=== PATIENT | male | born 1955 ===

== ENCOUNTER 2023-08-25 09:13 | Outpatient (CLI) | payer OTHER | END 2023-08-25 10:12 | disposition home or self-care (01) | LOC: MRI 09:13 | DX: C61 Malignant neoplasm of prostate (principal) | CPT/HCPCS: 72197; Q9965 ==

== ENCOUNTER 2024-11-03 20:26 | Emergency (ER) | payer OTHER ==
[~2024-11-03] VITALS: Ht 175.3 cm; Wt 79.4 kg
[2024-11-03] MEDS ORDERED: EZALLOR SPRINKLE5 MG (20:34)
[2024-11-03] MEDS ORDERED: VAZALORE81 MG (20:35)
[2024-11-03] MEDS ORDERED: KEPPRA100 MG/1 M (20:35)
[2024-11-03] MEDS ORDERED: 0.9 % SODIUM CHLORIDE 1,000 ML IV STA (20:46)
[2024-11-03 21:09] LABS: HEMATOCRIT 41.7 % (39.0-48.0); HEMOGLOBIN 14.3 g/dL (13-16.00); MEAN CELL VOLUME 86.2 fL (80.0-100.00); MEAN CORPUSCULAR HEMOGLOBIN 29.6 pg (27.00-32.0); MEAN CORPUSCULAR HGB CONC 34.4 g/dl (32.0-36.0); PLATELET COUNT 203 K/uL (150-450); RED BLOOD COUNT 4.84 M/uL (4.00-6.00); RED CELL DISTRIBUTION WIDTH 13.1 % (11.5-14.5)
[2024-11-03 21:31] LABS: CALCIUM 9.7 mg/dL (8.5-10.1); CREATININE SERUM 0.89 mg/dL (0.70-1.30); GFR 85.26; POTASSIUM 4.32 mEq/L (3.5-5.1)
[2024-11-03 21:59] VITALS: BP 110/63; O2SAT 100
== END 2024-11-03 22:18 | disposition home or self-care (01) ==
LOC: ER 20:26
PROVIDERS: Emergency Medicine
DX: T40.711A Poisoning by cannabis, accidental (unintentional), initial encounter (principal); X58.XXXA Exposure to other specified factors, initial encounter; Y93.89 Activity, other specified; Y92.018 Other place in single-family (private) house as the place of occurrence of the external cause
CPT/HCPCS: 36415; 93005; 96365; 99283; J7030